=== PATIENT | female | born 1945 | race Caucasian/White ===

== ENCOUNTER 2019-05-08 13:44 | Emergency (ER) | payer OTHER ==
[~2019-05-08] VITALS: Ht 157.5 cm; Wt 77.1 kg
[2019-05-08] MEDS ORDERED: LANTUS SOL100 UNIT/1 (14:57)
[2019-05-08] MEDS ORDERED: SYNTHROID75 MCG (14:57)
[2019-05-08] MEDS ORDERED: NORVASC10 MG (14:58)
[2019-05-08] MEDS ORDERED: SKELAXIN800 MG PO (17:55)
[2019-05-08] MEDS ORDERED: ADVIL100 MG PO (17:55)
== END 2019-05-08 19:00 | disposition home or self-care (01) ==
LOC: ER 13:44
DX: M54.2 Cervicalgia (principal)